=== PATIENT | female | born 1960 | race Caucasian/White ===

== ENCOUNTER 2018-11-10 09:07 | Day surgery (SDC) | payer BC, OTHER ==
[~2018-11-10] VITALS: Ht 162.6 cm; Wt 88.7 kg
[2018-11-10 10:22] VITALS: Ht 162.6 cm; Wt 88.7 kg
[2018-11-10] MEDS ORDERED: ASA 81 (10:28)
[2018-11-10] MEDS ORDERED: ZANTAC (10:28)
[2018-11-10] MEDS ORDERED: GABAPENTIN (10:28)
[2018-11-10] MEDS ORDERED: ATORVASTATIN (10:28)
[2018-11-10] MEDS ORDERED: ZOLOFT (10:28)
[2018-11-10] MEDS ORDERED: LEVOTHYROXINE (10:28)
[2018-11-10] MEDS ORDERED: INSULIN (10:28)
[2018-11-10] MEDS ORDERED: FLUTICASONE (10:28)
[2018-11-10] MEDS ORDERED: LISINOPRIL (10:28)
[2018-11-10] MEDS ORDERED: OYSCO (10:28)
[2018-11-10] MEDS ORDERED: METFORMIN (10:28)
[2018-11-10 10:39] VITALS: BP 130/61; PULSE 64; RESP 18
--- NOTE | 2018-11-10 10:41 | PREAC ---
Date/Time of Note Date/Time of Note DATE: 11/10/18 TIME: 10:40 Anesthesia Eval and Record Evaluation Time Pre-Procedure Interview DATE: 11/10/18 TIME: 10:40 Age 58 Sex female NPO: 8 hrs Preoperative diagnosis abd pain and screening Planned procedure egd and colonoscopy Past Medical History Past Medical History: Includes Cardio: HTN, Dyslipidemia Endo: Diabetes, Hypothyroid GI: Obesity Psych: Depression Surgery & Anesthesia Issues No known issue Meds Anticoagulation: No Beta Kay within 24 hr: No Reason Beta Kay not given: Pt. not on B-Kay Reported Medications [Asa 81] No Conflict Check 11/10/18 [Atorvastatin] No Conflict Check 11/10/18 [Levothyroxine] No Conflict Check 11/10/18 [Zoloft] No Conflict Check 11/10/18 [Lisinopril] No Conflict Check 11/10/18 [Metformin] No Conflict Check 11/10/18 [Oysco] No Conflict Check 11/10/18 [Fluticasone] No Conflict Check 11/10/18 [Gabapentin] No Conflict Check 11/10/18 [Insulin] No Conflict Check 11/10/18 [Zantac] No Conflict Check 11/10/18 Meds reviewed: Yes Allergies Coded Allergies: No Known Allergy (Unverified , 11/10/18) Allergies Reviewed: Yes Labs/Studies Labs Reviewed: Reviewed by anesthesiologist test: N/A Pre-procedure Exam Airway: Adequate mouth opening, Adequate thyromental dist Mallampati: Mallampati III Teeth: Normal Lung: Normal Heart: Normal ASA Physical Status ASA physical status: 3 Emergency: None Pre-operative Attestations Prior to commencing anesthesia and surgery, the patient was re-evaluated, there was verification of: *The patient's identity *The results of appropriate recent lab work and preoperative vital signs *The above evaluation not changing prior to induction *Anesthetic plan, risk benefits, alternative and complications discussed with patient/family; questions answered; patient/family understands, accepts and wishes to proceed. ALVINA RAMIREZ DO Nov 10, 2018 10:41
[2018-11-10] MEDS ORDERED: PROPOFOL 40 ML ONE (10:49)
[2018-11-10] MEDS ORDERED: PROPOFOL 200 MG INJ ONE (10:49)
[2018-11-10] MEDS ORDERED: LIDOCAINE 2% (SDV) 5 ML INJ ONE (10:49)
[2018-11-10] MEDS ORDERED: MIDAZOLAM 1 MG/ML 2 ML INJ ONE (10:49)
[2018-11-10] MEDS ORDERED: LABETALOL HCL 20MG INJ IV PRN (11:00)
[2018-11-10] MEDS ORDERED: HYDROmorphONE 1 MG/5 ML IV SYRINGE IV PRN (11:00)
[2018-11-10] MEDS ORDERED: ONDANSETRON 4 MG INJ IV PRN (11:00)
--- NOTE | 2018-11-10 11:24 | PAC ---
Date/Time of Note Date/Time of Note DATE: 11/10/18 TIME: 11:24 Post-Anesthesia Notes Post-Anesthesia Note Last documented vital signs 150/62 69 100% 18 98 Activity: WNL Respiratory function: WNL Cardiovascular function: WNL Mental status: Baseline Pain reasonably controlled: Yes Hydration appropriate: Yes Nausea/Vomiting absent: Yes ALVINA RAMIREZ DO Nov 10, 2018 11:24
[2018-11-10 11:49] VITALS: BP 118/58; PULSE 64; RESP 24
== END 2018-11-10 12:31 | disposition home or self-care (01) ==
LOC: GIL 09:07
PROVIDERS: ATTEND Internal Medicine Gastroenterology
DX: Z12.11 Encounter for screening for malignant neoplasm of colon (principal); K64.8 Other hemorrhoids; K57.30 Diverticulosis of large intestine without perforation or abscess without bleeding; K29.50 Unspecified chronic gastritis without bleeding; E11.9 Type 2 diabetes mellitus without complications; I10 Essential (primary) hypertension; E03.9 Hypothyroidism, unspecified; E78.5 Hyperlipidemia, unspecified; Z79.4 Long term (current) use of insulin
CPT/HCPCS: 43239; 45378; 82962; 88305; 88312; J2250; Z7610